=== PATIENT | female | born 1980 ===

== ENCOUNTER 2016-08-26 12:16 | Outpatient (CLI) | payer OTHER | END 2016-08-26 12:17 | disposition home or self-care (01) | DX: Z00.00 Encounter for general adult medical examination without abnormal findings (principal) ==

== ENCOUNTER 2019-01-07 14:02 | Outpatient (CLI) | payer OTHER ==
--- NOTE | 2019-01-07 17:11 | Mammography Report ---
Reason: RT BREAST LUMP Procedure Date: 01/07/2019 Accession Number: [id number] / [id number] Procedure: CHET - Diagnostic Dig Bilat CPT Code: FULL RESULT: EXAM: Diagnostic Dig Bilat DATE: 01/07/2019 3:14 PM CLINICAL HISTORY: Right breast lump. Diagnostic examination. The patient relates a history of a red circular skin excoriation in the region of concern which has since nearly resolved. TECHNIQUE: (B) - Bilateral CC, laterally exaggerated CC, MLO views were obtained. Right ML images are obtained. COMPARISON: 01/19/2014. PARENCHYMAL PATTERN: (A) - The breast(s) demonstrate(s) scattered fibroglandular densities. FINDINGS: The area of clinical concern is marked with a BB. In this region, there is questionably 1 mm or less focal superficial skin thickening with no underlying mammographic findings, compatible with the provided history and in this setting typically benign. There are no suspicious masses, calcifications, or areas of distortion. IMPRESSION: Benign findings. BI-RADS category 2. RECOMMENDATION: (ANNUAL) - Recommend routine annual screening mammography. BI-RADS CATEGORY: (2) - Benign Findings. STANDARD QUALIFYING STATEMENTS: 1. This examination was not reviewed with the aid of Computer-Aided Detection (CAD). 2. A negative or benign imaging report should not preclude biopsy if clinically suspicious findings are present. 3. Dense breasts may obscure an underlying neoplasm. 4. This examination was reviewed with the aid of 3D breast imaging (tomosynthesis).
== END 2019-01-07 14:03 | disposition home or self-care (01) ==
LOC: DI 14:02
PROVIDERS: ATTEND Family Medicine
DX: N63.10 Unspecified lump in the right breast, unspecified quadrant (principal)
CPT/HCPCS: 77062; 77066

== ENCOUNTER 2021-02-02 17:04 | Emergency (ER) | payer OTHER ==
--- NOTE | 2021-02-02 17:57 | XRAY Report ---
PROCEDURE: Chest 1 View X-Ray INDICATIONS: Chest pain TECHNIQUE: One view of the chest was acquired. COMPARISON: None FINDINGS: Surgical changes and devices: None. Lungs and pleura: No pleural effusions or pneumothorax. Lungs are clear. Mediastinum: Mediastinal contours appear normal. Heart size is normal. Bones and chest wall: No suspicious bony lesions. Overlying soft tissues appear unremarkable. IMPRESSION: No acute cardiopulmonary process demonstrated radiographically. Reviewed by: Jude Cloud MD on 02/02/2021 5:56 PM PDT Approved by: Jude Cloud MD on 02/02/2021 5:56 PM PDT Station ID: [id number]
[2021-02-02] MEDS ORDERED: FAMOTIDINE 20 MG TABLET PO STA (18:00)
[2021-02-02] MEDS ORDERED: LIDOCAINE VISCOUS 2% 15 ML UDC MM STA (18:00)
[2021-02-02] MEDS ORDERED: SUCRALFATE 1 GM/10 ML UDC PO STA (18:00)
[2021-02-02] MEDS ORDERED: MAG HYDROX/AL HYDROX/SIMETH 30 ML UDC PO STA (18:00)
--- NOTE | 2021-02-02 18:00 | ED Physician Documentation ---
PD HPI CHEST PAIN - Stated complaint Stated Complaint: CHEST PRESSURE,DIZZY - Chief complaint Chief Complaint: Cardiac - History obtained from History obtained from: Patient - History of Present Illness Timing - onset: Today, How many weeks ago (1) Timing - duration: Weeks (1) Timing - details: Gradual onset Pain level max: 5 Pain level now: 1 Quality: Pressure Location: Substernal Radiation: No: Jaw, Neck, Back, Abdominal, Left upper extremity, Right upper extremity Improved by: Nothing Worsened by: Movement Associated symptoms: Nausea, Feeling faint / dizzy. No: Shortness of air, Diaphoresis, Vomiting, General Weakness, Palpitations, Cough Similar symptoms before: Has not had sx before Recently seen: Not recently seen - Additional information Additional information: No recent surgeries, no leg swelling, no recent travel. No history of blood clots. Review of Systems Constitutional: denies: Fever, Chills GI: denies: Nausea, Vomiting, Diarrhea Skin: denies: Rash Musculoskeletal: denies: Neck pain, Back pain Neurologic: denies: Headache PD PAST MEDICAL HISTORY - Past Medical History Past Medical History: No - Past Surgical History Past Surgical History: No - Allergies Allergies/Adverse Reactions: Allergies Allergy/AdvReac Type Severity Reaction Status Date / Time Penicillins Allergy Itching Verified 02/02/21 17:35 - Living Situation Living Situation: reports: With family Living Arrangement: reports: At home - Social History Does the pt smoke?: No Smoking Status: Never smoker Does the pt drink ETOH?: No Does the pt have substance abuse?: No PD ED PE NORMAL - Vitals Vital signs reviewed: Yes - General General: Alert and oriented X 3, No acute distress - HEENT HEENT: Moist mucous membranes - Neck Neck: Supple, no meningeal sign, No JVD, No bruit - Cardiac Cardiac: RRR, Strong equal pulses - Respiratory Respiratory: No respiratory distress, Clear bilaterally - Abdomen Abdomen: Soft, Non tender, Non distended - Derm Derm: Warm and dry - Extremities Extremities: No edema, No calf tenderness / cord - Neuro Neuro: Alert and oriented X 3 - Psych Psych: Normal mood, Normal affect Results - Vitals Vitals: Vital Signs - 24 hr 02/02/21 02/02/21 02/02/21 17:24 18:23 18:49 Temperature 36.9 C Heart Rate 88 92 76 Respiratory 18 16 16 Rate Blood Pressure 134/93 H 130/90 H 143/100 H O2 Saturation 98 100 98 02/02/21 02/02/21 02/02/21 19:45 20:01 21:19 Temperature 36.8 C Heart Rate 75 77 72 Respiratory 10 L 15 16 Rate Blood Pressure 138/96 H 135/81 H O2 Saturation 100 98 Oxygen O2 Source Room air - EKG (time done) 1724 Rate: Rate (enter#) (84) Rhythm: NSR [place]: Normal Intervals: Normal VA QRS: Normal Ischemia: Normal ST segments - Labs Labs: Laboratory Tests 02/02/21 02/02/21 02/02/21 18:26 18:52 18:52 WBC 8.3 RBC 4.55 Hgb 13.3 Hct 40.8 MCV 89.7 MCH 29.2 MCHC 32.6 RDW 12.7 Plt Count 231 MPV 10.6 Neut # (Auto) 4.8 Lymph # (Auto) 2.7 [place] # (Auto) 0.5 Eos # (Auto) 0.3 Baso # (Auto) 0.0 Absolute Nucleated RBC 0.00 Nucleated RBC % 0.0 Sodium 140 Potassium 4.1 Chloride 104 Carbon Dioxide 26 Anion Gap 10.0 BUN 13 Creatinine 0.6 Estimated GFR (MDRD) 110 Glucose 102 H Calcium 9.4 Total Bilirubin 0.3 AST 14 ALT 16 Alkaline Phosphatase 48 Troponin I High Sens Total Protein 7.4 Albumin 4.1 Globulin 3.3 Albumin/Globulin Ratio 1.2 Lipase 34 Urine Color YELLOW Urine Clarity CLEAR Urine pH 6.0 Ur Specific [place] 1.025 Urine Protein NEGATIVE Urine Glucose (UA) NEGATIVE Urine Ketones NEGATIVE Urine Occult Blood TRACE-INTA Urine Nitrite NEGATIVE Urine Bilirubin NEGATIVE Urine Urobilinogen 0.2 (NORMAL) Ur Leukocyte Esterase NEGATIVE Ur Microscopic Review NOT INDICATED Urine Culture Comments NOT INDICATED Urine HCG, Qual NEGATIVE 02/02/21 18:52 WBC RBC Hgb Hct MCV MCH MCHC RDW Plt Count MPV Neut # (Auto) Lymph # (Auto) [place] # (Auto) Eos # (Auto) Baso # (Auto) Absolute Nucleated RBC Nucleated RBC % Sodium Potassium Chloride Carbon Dioxide Anion Gap BUN Creatinine Estimated GFR (MDRD) Glucose Calcium Total Bilirubin AST ALT Alkaline Phosphatase Troponin I High Sens 3.2 Total Protein Albumin Globulin Albumin/Globulin Ratio Lipase Urine Color Urine Clarity Urine pH Ur Specific [place] Urine Protein Urine Glucose (UA) Urine Ketones Urine Occult Blood Urine Nitrite Urine Bilirubin Urine Urobilinogen Ur Leukocyte Esterase Ur Microscopic Review Urine Culture Comments Urine HCG, Qual - Rads (name of study) cxr Radiology: Final report received, EMP read contemporaneously, See rad report (no acute disease) PD MEDICAL DECISION MAKING - ED course Complexity details: reviewed results, re-evaluated patient, considered differential (No ST elevation MO, no aortic dissection, no PE, no tension pneumothorax, no aortic aneurysm), d/w patient ED course: Unclear etiology of the patient's symptoms. No change with GI cocktail. No change with inhaler. No change with Toradol. No change with Ativan. No distress here. No risk factors for PE. Patient does not have pleuritic pain. No tachycardia. We will have her follow-up with her doctor for further care. Patient counseled regarding signs and symptoms for which I believe and urgent re-evaluation would be necessary. Patient with good understanding of and agreement to plan and is comfortable going home at this time This document was made in part using voice recognition software. While efforts are made to proofread this document, sound alike and grammatical errors may occur. Departure - Departure Disposition: 01 Home, Self Care Clinical Impression: Chest pressure Condition: Good Instructions: ED Chest Pain Atypical Unkn Cause Follow-Up: Nika Woods DO [Primary Care Provider] - Within 1 week Comments: The cause of your symptoms is unclear today. It does not appear that any of the medications helped you. Your EKG, chest x-ray, laboratory testing did not show any acute abnormalities. Please follow-up with your doctor for further care. Return if you worsen Discharge Date/Time: 02/02/21 21:21
[2021-02-02 18:41] LABS: BILIRUBIN,URINE NEGATIVE (NEGATIVE); GLUCOSE, URINE (UA) NEGATIVE (NEGATIVE); KETONES,URINE (UA) NEGATIVE (NEGATIVE); LEUKOCYTE ESTERASE, URINE NEGATIVE (NEGATIVE); NITRITE,URINE NEGATIVE (NEGATIVE); OCCULT BLOOD,URINE TRACE-INTA (NEGATIVE); PROTEIN,URINE NEGATIVE (NEGATIVE); UROBILINOGEN,URINE 0.2 (NORMAL) E.U./dL (NORMAL)
[2021-02-02 18:45] LABS: CLARITY,URINE CLEAR (CLEAR); HCG UR QUAL NEGATIVE
[2021-02-02 19:03] LABS: BASOPHILS % (AUTO) 0.4 %; EOSINOPHILS # (AUTO) 0.3 10^3/uL (0.0-0.7); EOSINOPHILS % (AUTO) 3.1 %; HCT - HEMATOCRIT 40.8 % (37.0-47.0); HGB - HEMOGLOBIN 13.3 g/dL (12.0-16.0); LYMPHOCYTES # (AUTO) 2.7 10^3/uL (1.5-3.5); LYMPHOCYTES % (AUTO) 32.1 %; MEAN CORPUSCULAR HEMOGLOBIN 29.2 pg (27.0-31.0); MEAN CORPUSCULAR HGB CONC 32.6 g/dL (32.0-36.0); MEAN CORPUSCULAR VOLUME 89.7 fL (81.0-99.0); MEAN PLATELET VOLUME 10.6 fL (7.9-10.8); MONOCYTES # (AUTO) 0.5 10^3/uL (0.0-1.0); NEUTROPHILS # (AUTO) 4.8 10^3/uL (1.5-6.6); NEUTROPHILS % (AUTO) 57.9 %; PLT - PLATELET COUNT 231 10^3/uL (130-450); RED BLOOD COUNT 4.55 10^6/uL (4.20-5.40); RED CELL DISTRIBUTION WIDTH 12.7 % (12.0-15.0); WHITE BLOOD COUNT 8.3 x10^3/uL (4.8-10.8)
[2021-02-02 19:22] LABS: ALBUMIN 4.1 g/dL (3.2-5.5); ALBUMIN/GLOBULIN RATIO 1.2 (1.0-2.2); BILIRUBIN,TOTAL 0.3 mg/dL (0.2-1.0); CALCIUM 9.4 mg/dL (8.5-10.3); CREATININE 0.6 mg/dL (0.4-1.0); POTASSIUM 4.1 mmol/L (3.5-5.0); TOTAL PROTEIN 7.4 g/dL (6.7-8.2)
[2021-02-02] MEDS ORDERED: ALBUTEROL 1 PUFF INH STA (19:31)
[2021-02-02] MEDS ORDERED: KETOROLAC 60 MG/2 ML VIAL IM STA (19:31)
[2021-02-02] MEDS ORDERED: LORazepam 1 MG TABLET PO STA (20:10)
[2021-02-02 21:21] VITALS: BP 135/81
== END 2021-02-02 21:21 | disposition home or self-care (01) ==
LOC: ED 17:04
DX: R07.89 Other chest pain (principal); R42 Dizziness and giddiness; R11.0 Nausea; Z20.822 Contact with and (suspected) exposure to COVID-19
CPT/HCPCS: 36415; 71045; 80053; 81003; 81025; 83690; 84484; 85025; 87635; 93005; 94640; 96372; 99284; A9270; J8499; 81001; 87086

== ENCOUNTER 2021-04-02 09:19 | Outpatient (CLI) | payer OTHER ==
--- NOTE | 2021-04-02 09:44 | CARDIAC PROCEDURE NOTE ---
Stress Test Report Service Date: 04/02/21 Service Time: 09:30 Ordering Provider: Adrian Martini MD Indication for Test: Assess non-exertional chest discomfort and palpitations. Significant Medical History: Veda is referred for a treadmill stress echocardiogram as part of evaluation for recent upper chest pressure and palpitations. She experienced an episode of central upper chest pressure lasting for several days, for which she underwent evaluation initially in the [facility] Em[facility] and then in our walk-in clinic; on neither occasion were there abnormal EKG findings. The initial chest discomfort did not resolve with a GI cocktail nor with anti-anxiety medication, and the pressure waxed and waned for several more days before resolving. Since that time it has recurred intermittently, without clear precipitant(s), lasting only 1-2 hours recently; it may come on at rest (though not with exertion) and getting up and moving around generally helps it to dissipate. There has been no associated diaphoresis or dyspnea, however there can be intermittent heart fluttering, for which outpatient ambulatory rhythm monitoring is pending. She continues working out on a regular basis, without any sense of a decrement in her exertional tolerance. 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 Cardiac Risk Factors: Negative for cigarette smoking ever, hypertension, hyperlipidemia and diabetes. Only family history of ASCVD is in her grandfather at about age 90. Type of Stress Test: ETT with Echocardiography Procedure: -Exercise Treadmill Test- After signing informed consent for her stress test, the patient underwent rest echo imaging, revealing suboptimal endocardial border resolution, thus after informed consent was obtained an IV was placed for administration of Definity contrast. She then performed treadmill exercise using a David protocol. The patient exercised for 7 minutes 38 seconds and achieved a peak heart rate of 164 (92 percent predicted maximum heart rate for age), and an estimated workload of 10.2 METS. The test was terminated due to fatigue/shortness of breath after achieving target heart rate. Resting heart rate: 71 Peak heart rate: 164 Normal response to exercise. Resting BP: 141/105 Peak BP: 149/95 Hypertensive BP at rest with only modest SBP increase in response to exercise, with normal DBP decrease. Rhythm during exercise: Sinus rhythm throughout. Symptoms: She did not experience any chest pressure or chest flutters at any time. EKG at rest showed normal sinus rhythm with low precordial QRS voltages, otherwise fully normal QRS/ST/T morphologies. EKG at peak stress showed J-point depression with upsloping ST segments NOT meeting diagnostic criteria for ischemia. In Recovery heart rate and blood pressure rapidly declined toward (HR) or below (BP) resting levels. Echo imaging with Definity contrast was performed at rest and with stress will be reported separately. IBon MD, was present throughout Definity contrast administration and the treadmill stress test and supervised the study in all aspects. Summary: 1) Exercise tolerance was probably near average for age as evidenced by attainment of 10.2 METS and SHIVAM of 11%. Veda might have been able to continue a bit longer, but after achieving target heart rate and her having received the stress Definity dose we opted to terminate the exercise protocol. 2) Normal resting EKG. 3) Adequate level of exercise was achieved on this treadmill stress test. 4) Hypertensive at rest with mildly subnormal SBP response to exercise. 5) No ischemic changes by EKG criteria were seen at peak stress. 6) Echo image interpretation reveals normal resting left ventricular size and systolic function, with appropriate stress-associated hyperaugmentation of all segments, indicative of no prior infarction nor inducible ischemia. CONCLUSIONS: 1) Low risk treadmill stress echocardiogram, without provocation of index symptoms and no EKG or echocardiographic evidence of inducible ischemia. 2) Patient awaits completion of ambulatory rhythm monitoring.
[2021-04-02] MEDS ORDERED: PERFLUTREN LIPID MICROSPHERES 1.65 MG/1.5 ML VIAL IVP ONE (12:28)
== END 2021-04-02 09:20 | disposition home or self-care (01) ==
LOC: DI 09:19
PROVIDERS: ATTEND Family Medicine
DX: R07.89 Other chest pain (principal); R00.2 Palpitations; I10 Essential (primary) hypertension; Z82.49 Family history of ischemic heart disease and other diseases of the circulatory system
CPT/HCPCS: 93350; Q9957

== ENCOUNTER 2023-03-25 14:31 | Outpatient (CLI) | payer OTHER ==
--- NOTE | 2023-03-27 14:31 | Mammography Report ---
BILATERAL DIGITAL SCREENING MAMMOGRAM 3D/2D: 03/25/2023 CLINICAL: Routine screening. Comparison is made to exams dated: 01/07/2019 mammogram, 01/19/2014 ultrasound, and 01/19/2014 mammogram - [facility]. There are scattered areas of fibroglandular density in both breasts (category b / 25%-50% glandular t issue). No significant masses, calcifications, or other findings are seen in either breast. There has been no significant interval change. IMPRESSION: NEGATIVE There is no mammographic evidence of malignancy. A 1 year screening mammogram is recommended. Based on the Tyrer Cuzick model (a risk assessment model) the patients lifetime risk is 10.1% and he r 10 year risk is 1.7%. According to the ACR, ACS, and NCCN guidelines, an annual breast MRI exam luciano ng with mammogram is recommended if the patients lifetime risk is 20% or greater. This exam was interpreted at Station ID: [id number]. NOTE: For mammograms, a report in lay terms will be sent to the patient. Approximately 15% of breast malignancies will not be visualized mammographically. In the management of a palpable breast mass, a negative mammogram must not discourage biopsy of a clinically suspicious lesion. Electronically Signed By: Jihan [email or web address]/[email or web address]:03/26/2023 16:22:46 letter sent: No_Letter ACR BI-RADS Category 1: Negative 3341F PARENCHYMAL PATTERN: (A) - The breast(s) demonstrate(s) scattered fibroglandular densities. BI-RADS CATEGORY: (1) - 1 Mammogram [id number] 1 year screening LATERALITY: (B)
== END 2023-03-25 14:32 | disposition home or self-care (01) ==
LOC: DI.N 14:31
PROVIDERS: ATTEND Obstetrics & Gynecology
DX: Z12.31 Encounter for screening mammogram for malignant neoplasm of breast (principal); R92.323 Mammographic fibroglandular density, bilateral breasts

== ENCOUNTER 2023-04-28 10:11 | Outpatient (CLI) | payer OTHER ==
[2023-04-28 12:04] LABS: BASOPHILS % (AUTO) 0.5 %; EOSINOPHILS # (AUTO) 0.2 10^3/uL (0.0-0.7); EOSINOPHILS % (AUTO) 2.8 %; HGB - HEMOGLOBIN 13.4 g/dL (12.0-16.0); LYMPHOCYTES # (AUTO) 2.1 10^3/uL (1.5-3.5); LYMPHOCYTES % (AUTO) 34.2 %; MEAN CORPUSCULAR HEMOGLOBIN 27.7 pg (27.0-31.0); MEAN CORPUSCULAR HGB CONC 31.9 g/dL (32.0-36.0); MEAN CORPUSCULAR VOLUME 86.8 fL (81.0-99.0); MEAN PLATELET VOLUME 11.6 fL (7.9-10.8); MONOCYTES # (AUTO) 0.4 10^3/uL (0.0-1.0); MONOCYTES % (AUTO) 6.9 %; NEUTROPHILS # (AUTO) 3.4 10^3/uL (1.5-6.6); NEUTROPHILS % (AUTO) 55.1 %; PLT - PLATELET COUNT 255 10^3/uL (130-450); RED BLOOD COUNT 4.84 10^6/uL (4.20-5.40); RED CELL DISTRIBUTION WIDTH 13.2 % (12.0-15.0); WHITE BLOOD COUNT 6.1 x10^3/uL (4.8-10.8)
[2023-04-28 12:36] LABS: THYROID STIMULATING HORMONE 0.88 uIU/mL (0.34-5.60)
[2023-04-28 12:37] LABS: ALBUMIN 4.4 g/dL (3.2-5.5); ALBUMIN/GLOBULIN RATIO 1.6 (1.0-2.2); ALKALINE PHOSPHATASE 49 IU/L (42-121); ALT ALANINE AMINOTRANSFERASE 14 IU/L (10-60); AST ASPARTATE AMINOTRANSFERASE 14 IU/L (10-42); BILIRUBIN,TOTAL 0.6 mg/dL (0.2-1.0); BUN - BLOOD UREA NITROGEN 10 mg/dL (6-20); CALCIUM 8.9 mg/dL (8.5-10.3); CARBON DIOXIDE - CO2 26 mmol/L (21-32); CHLORIDE 104 mmol/L (101-111); CHOL/HDL RATIO 2.6 (<4.4); CHOLESTEROL 125 mg/dL; CREATININE 0.6 mg/dL (0.6-1.3); GFR - MDRD 109 (>89); GLUCOSE 84 mg/dL (74-104); HDL CHOLESTEROL 48 mg/dL; LDL CHOLESTEROL,CALCULATED 63 mg/dL; LDL/HDL RATIO 1.3 (<4.4); POTASSIUM 3.9 mmol/L (3.5-4.5); SODIUM 136 mmol/L (135-145); TOTAL PROTEIN 7.2 g/dL (6.4-8.9); TRIGLYCERIDES 68 mg/dL (48-352); VLDL CHOLESTEROL 14 mg/dL
[2023-04-28 12:51] LABS: ESTIMATED AVERAGE GLUCOSE 91 mg/dL (70-100); HEMOGLOBIN A1c% 4.8 % (4.27-6.07)
== END 2023-04-28 10:12 | disposition home or self-care (01) ==
LOC: LAB.N 10:11
PROVIDERS: ATTEND Nurse Practitioner Family
DX: Z00.00 Encounter for general adult medical examination without abnormal findings (principal); E66.9 Obesity, unspecified; R03.0 Elevated blood-pressure reading, without diagnosis of hypertension
CPT/HCPCS: 36415; 80053; 80061; 83036; 83721; 84443; 85025

== ENCOUNTER 2023-09-21 15:18 | Outpatient (CLI) | payer OTHER ==
[2023-09-21 18:48] LABS: CALCIUM 9.9 mg/dL (8.5-10.3); CREATININE 0.9 mg/dL (0.6-1.3); CRP - C-REACTIVE PROTEIN 1.1 mg/dL (<0.5); POTASSIUM 3.5 mmol/L (3.5-4.5)
== END 2023-09-21 15:19 | disposition home or self-care (01) ==
LOC: LAB.N 15:18
PROVIDERS: ATTEND Nurse Practitioner Family
DX: I10 Essential (primary) hypertension (principal); M20.31 Hallux varus (acquired), right foot; M25.549 Pain in joints of unspecified hand
CPT/HCPCS: 36415; 80048; 85651; 86140

== ENCOUNTER 2023-12-28 10:15 | Outpatient (CLI) | payer OTHER ==
--- NOTE | 2023-12-28 11:41 | XRAY Report ---
PROCEDURE: Finger(s) LT INDICATIONS: SPRAIN OF INTERPHALANGEAL JOINT OF LEFT THUMB TECHNIQUE: AP hand, 2 views of the left first finger(s) acquired. COMPARISON: None. FINDINGS: Bones: No fractures or dislocations. No suspicious bony lesions. Soft tissues: No suspicious soft tissue calcifications or masses. IMPRESSION: No acute bony abnormality. Reviewed by: Jihan Samson MD on 12/28/2023 11:40 AM PDT Approved by: Jihan Samson MD on 12/28/2023 11:40 AM PDT Station ID: [id number]
== END 2023-12-28 10:30 | disposition home or self-care (01) ==
LOC: DI.N 10:15
PROVIDERS: ATTEND Physician Assistant Medical
DX: S63.622A Sprain of interphalangeal joint of left thumb, initial encounter (principal)

== ENCOUNTER 2024-01-06 09:55 | Outpatient (CLI) | payer OTHER ==
--- NOTE | 2024-01-06 22:14 | XRAY Report ---
PROCEDURE: Finger(s) LT INDICATIONS: SPRAIN OF INTERPHALANGEAL JOING OF LEFT THUMB TECHNIQUE: AP hand, 2 views of the first finger(s) acquired. COMPARISON: X-ray finger 12/28/2023 FINDINGS: Bones: No fractures or dislocations. No suspicious bony lesions. Soft tissues: No suspicious soft tissue calcifications or masses. IMPRESSION: No visualized fracture. If concern persists, MRI or CT is recommended. Reviewed by: Reny Quarles MD on 01/06/2024 10:13 PM PDT Approved by: Reny Quarles MD on 01/06/2024 10:13 PM PDT Station ID: [id number]
== END 2024-01-06 09:56 | disposition home or self-care (01) ==
LOC: DI.N 09:55
PROVIDERS: ATTEND Orthopaedic Surgery
DX: S63.622A Sprain of interphalangeal joint of left thumb, initial encounter (principal)